=== PATIENT | male | born 1965 | race Caucasian/White ===

== ENCOUNTER 2019-11-22 20:21 | Emergency (ER) | payer BC ==
--- OUTSIDE RECORDS SUMMARY | 2019-11-22 20:30 | XMS REPORT | Continuity of Care Document ---
:1965 External Reference #:[id number] Author Name Citlalli Dowd DO Address [address] [place] [address] Care Team Providers Name Role Phone Ramos Ortega MD - Hematology & Care Team Information Qa Consultant Oncology Jack Yepez MD - Family Care Team Information Qa Consultant [phone] Medicine King Gonzalez MD [facility] - Care Team Information Qa Consultant [phone] Cardiovascular Disease Problems Active Problems Provider Date Lymphadenopathy Jack Snyder MD Onset: 11/17/2012 Malignant lymphoma of lymph nodes of Jack Snyder MD Onset: 12/17/2012 inguinal region AND/OR lower limb Malignant lymphoma of lymph nodes of Citlalli Dowd DO Onset: 03/27/2015 axilla AND/OR upper limb Localized, primary osteoarthritis Citlalli Dowd DO Onset: 03/27/2015 Arthralgia of the lower leg Citlalli Dowd DO Onset: 03/27/2015 Vitamin deficiency Citlalli Dowd DO Onset: 10/26/2019 Abnormal findings on diagnostic Rei Jonas M.D. Onset: 01/27/2019 imaging of urinary organs Benign prostatic hyperplasia Rei Jonas M.D. 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 Social History Type Date Description Comments Sex Unknown Tobacco Use Start: Unknown End: Former Cigarette Smoker Quit 2 yrs ago Unknown ETOH Use Currently consumes alcohol socially Tobacco Use Start: Unknown End: Patient is a former Unknown smoker Recreational Drug Use Denies Drug Use Tobacco Use Start: Unknown 08/09/18 says quit 8yrs ago Smoking Status Reviewed: 02/25/19 08/09/18 says quit 8yrs ago Allergies, Adverse Reactions, Alerts Active Allergies Reaction Severity Comments Date NKDA 11/17/2012 Cats 07/04/2013 Dust Mites 07/04/2013 Dust 07/04/2013 Medications Active Medications SIG Qnty Indications Ordering Provider Date Alfuzosin HCL ER 1 by mouth 30tabs Rei Jonas, 01/27/2019 10mg every day M.D. Tablets ER 24HR Omeprazole TK 1 C PO D B Unknown 40mg Capsules Meal Immunizations CPT Code Status Date Vaccine Lot # [id number] Given 11/10/2012 Tdap injection Vital Signs Date Vital Result Comment 10/26/2019 3:01pm BP Systolic 145 mmHg BP Diastolic 91 mmHg Body Temperature 98.6 F Heart Rate 72 /min Respiratory Rate 16 /min Weight 219.00 lb Pain Level 4 right side lower back wrappes around to abd. O2 % BldC Oximetry 98 % 03/08/2019 9:56am BP Systolic 137 mmHg BP Diastolic 87 mmHg Body Temperature 98.3 F Heart Rate 72 /min Respiratory Rate 18 /min Height 69 inches 5'9" Weight 218.00 lb Pain Level 2 pelvic and bladder pain BMI (Body Mass Index) 32.2 kg/m2 BSA (Body Surface Area) 2.14 m2 [place] body weight in kilograms 73 kg O2 % BldC Oximetry 98 % Results Test Acquired Date Facility Test Result H/L Range Note Urine Culture 10/26/2019 [facility] Urine NO GROWTH: 1, [address] Culture FINAL <[place] [address] NOTE> [phone] CBC 10/26/2019 [facility] White Blood 4.8 K/uL Normal 3.4-10.5 W/Automated [address] Count Diff [place] [id number] [phone] Red Blood Count 4.69 M/uL Normal 4.20-5.80 Hemoglobin 14.1 gm/dL Normal 12.8-17.0 Hematocrit 41.8 % Normal 38.0-48.0 Mean Cell Volume 89.1 fl Normal 80.0-96.0 Mean Corpuscular HGB 30.1 pg Normal 27.0-33.0 Mean Corpuscular HGB Conc 33.7 g/dL Normal 31.7-36.0 Platelet Count 165 K/uL Normal 155-360 Red Cell Distri Width SD 39.8 fl Normal 36-51 Red Cell Distri Width %CV 12.2 % Normal 11.6-15.8 Mean Platelet Volume 10.2 fl Normal 6.6-10.6 Neut% 71.3 % Normal 33.0-73.0 Lymph % 17.9 % Low 20.0-42.0 [place] % 6.7 % Normal 0.0-10.0 Eo% 3.1 % Normal 0.0-6.6 Bas% 0.6 % Normal 0.0-1.1 Immature Grans 0.4 % Normal 0.0-5.0 NRBC % 0.0 /100WBC < 10/ 100 WBC Neut# 3.43 K/uL Normal 1.8-7.0 Lymph # 0.86 K/uL Low 1.0-4.0 [place] # 0.32 K/uL Normal 0.0-0.8 Eos # 0.15 K/uL Normal 0.0-0.5 Baso # 0.03 K/uL Normal 0.0-0.1 Immature Grans Absolute 0.02 K/uL NRBC # 0.00 K/uL Laboratory test finding 10/26/2019 [facility] Ferritin <pending> [address] [place], [place] [id number] [phone] Laboratory test finding 10/26/2019 [facility] LDH <pending> [address] [place], [place] [id number] [phone] Sedimentation Rate 8 mm/hr Normal 2-45 3 Ua RFX Micro & Culture 10/26/2019 [facility] Urine Color YELLOW Yellow II [address] [place] [address] [phone] Urine Clarity CLEAR Clear Urine Glucose - Dipstick NEGATIVE mg/dL Negative Urine Bilirubin - Dipstick NEGATIVE Negative Urine Ketone NEGATIVE mg/dL Negative Urine Specific [place] 1.025 Normal 1.010-1.030 Urine Blood NEGATIVE Negative Urine PH 6.0 Low 6.5-7.5 Urine Protein - Dipstick NEGATIVE mg/dL Negative Urine Urobilinogen - Dipstick 0.2 E.U./dL Normal 0.2-1.0 Urine Nitrite - Dipstick NEGATIVE Negative Urine Leuk Esterase NEGATIVE Negative Source: URINE, CLEAN CAT <SEE NOTE> 4 Iron-Tibc-%Sat 10/26/2019 [facility] Serum Iron 61 g/dL Low 65-175 [address] [place] [address] [phone] Total Iron Binding Capacity 296 g/dL Normal 250-450 Transferrin %Saturation 21 % Normal 12-57 Vitamin B12 And 10/26/2019 [facility] Vitamin B12 491 pg/mL Normal 193-986 Folate [address] [place] [address] [phone] Folic Acid 11.6 ng/mL Normal 3.1-17.5 Laboratory test 10/26/2019 [facility] Ferritin 228 ng/mL Normal 26-388 finding [address] [place], [place] [id number] [phone] Comprehensive 10/26/2019 [facility] Glucose 88 mg/dL Normal 74-106 Metabolic Panel [address] [place] [address] [phone] BUN 15 mg/dL Normal 7-18 Creatinine 1.0 mg/dL Normal 0.6-1.3 Glom Filtration Rate, Estimate >60 mL/min >60 If >60 mL/min >60 5 BUN/Creat 15.0 ratio Sodium 138 mmol/L Normal 136-145 Potassium 3.6 mmol/L Normal 3.5-5.1 Chloride 106 mmol/L Normal 98-107 Carbon Dioxide 29 mmol/L Normal 21-32 Anion Gap 3 mEq/L Low 8-16 Calcium 8.8 mg/dL Normal 8.5-10.1 Total Protein 7.6 g/dL Normal 6.4-8.2 Albumin 4.2 g/dL Normal 3.4-5.0 Globulin 3.4 g/dL Normal 1.9-4.3 Alb/Glob 1.2 ratio Bilirubin,Total 1.0 mg/dL Normal 0.2-1.0 Sgot/Ast 22 U/L Normal 15-37 SGPT/Alt 36 U/L Normal 12-78 Alkaline Phosphatase 74 U/L Normal 45-117 Laboratory test finding 10/26/2019 [facility] LDH 179 U/L Normal 87-241 [address] [place] [address] [phone] 1 C83.30 E61.1 E53.9 2 NO GROWTH: FINAL REPORT 3 This result was obtained with an ESR method that is not based on the standard Westergren Method. When comparing results obtained from the traditional Westergren ESR and this method it is important to refer to the reference range for each method. Method: Capillary Photometry 4 URINE, CLEAN CATCH 5 Note: Persistent reduction for 3 months or more in an eGFR <60 mL/min/1.73 m2 defines CKD. Patients with eGFR values >/=60 mL/min/1.73 m2 may also have CKD if evidence of persistent proteinuria is present. The original MDRD equation for estimated GFR is not valid for patients less than 18 years of age. Additional information may be found at www.kdo[facility].org. Procedures Description No Information Available Medical Devices Description No Information Available Encounters Description No Information Available Assessments Date Code Description Provider 10/26/2019 C83.30 Diffuse large B-cell lymphoma, unspecified Citlalli Dowd DO site 10/26/2019 N40.1 Benign prostatic hyperplasia with lower Citlalli Dowd DO urinary tract sympto 10/26/2019 E56.9 Vitamin deficiency Citlalli Dowd DO Plan of Treatment Future Appointment(s):11/01/2019 4:30 pm - Oncology Nurse at Oncology [id number] 10:00 am - Rei Jonas M.D. at Urology Functional Status Functional Condition Comment Date Status Independent with all ADL's Active Mental Status Description No Information Available Referrals Description No Information Available
[2019-11-22 20:44] VITALS: BP 140/85
--- NOTE | 2019-11-22 21:13 | UC ---
Respiratory Complaint HPI - HPI Summary HPI Summary: 53 yo male with sensation of dyspnea this has been an issue for months he fells like he is not getting enough air in symptoms wax and wane were bad in October then improved feels phlegmy at times no fever some tightness sub sternally Hx non Hodgkin Lyphoma Had CT chest 01/21 has had recent blood work no abd pain saw oncologist in Oct - History of Current Complaint Chief Complaint: UCRespiratory Stated Complaint: DIFFICULTY BREATHING Time Seen by Provider: 11/22/19 20:36 Hx Obtained From: Patient Onset/Duration: Sudden Onset, Gradual Onset, Lasting Weeks Timing: Intermittent Episodes Severity Initially: Mild Severity Currently: Mild Pain Intensity: 0 Pain Scale Used: 0-10 Numeric Character: Cough: Nonproductive Aggravating Factors: Nothing Alleviating Factors: Nothing Associated Signs And Symptoms: Positive: Dyspnea. Negative: Fever, Chills, Pleuritic Chest Pain, Wheezing, Hemoptysis, Dizziness, Calf Pain, Calf Swelling , Edema, URI, Nasal Congestion, Hoarseness, Sinus Discomfort Related History: Seasonal Allergies - Allergies/Home Medications Allergies/Adverse Reactions: Allergies Allergy/AdvReac Type Severity Reaction Status Date / Time No Known Allergies Allergy Verified 11/22/19 20:41 Home Medications: Home Medications Alfuzosin HCl [Alfuzosin HCl ER] 10 mg PO DAILY 11/22/19 [History Confirmed ] LORazepam TAB(*) [Ativan 0.5 MG TAB (*)] 0.5 mg PO TID PRN 11/22/19 [History Confirmed 11/22/19] Omeprazole 40 mg PO DAILY 11/22/19 [History Confirmed 11/22/19] PMH/Surg Hx/FS Hx/Imm Hx Previously Healthy: Yes Respiratory History: Bronchitis GI/ History: Gastroesophageal Reflux - Surgical History Surgical History: Yes Surgery Procedure, Year, and Place: DEVIATED SEPTUM REPAIR. WRIST SX WITH HIP SITE GRAPH. LEFT ACL. RIGHT HIP BX. MASS REMOVED FROM BEHIND LEFT EAR. PORT PLACEMENT AND REMOVAL - Family History Known Family History: Positive: Hypertension, Other - CVA, lymphoma - Social History Alcohol Use: Occasionally Substance Use Type: None Smoking Status (MU): Former Smoker When Did the Patient Quit Smoking/Using Tobacco: 5 YRS AGO Review of Systems All Other Systems Reviewed And Are Negative: Yes Constitutional: Positive: Negative Skin: Positive: Negative Eyes: Positive: Negative ENT: Positive: Negative Respiratory: Positive: Shortness Of Breath Cardiovascular: Positive: Negative Gastrointestinal: Positive: Negative Genitourinary: Positive: Negative Motor: Positive: Negative Neurovascular: Positive: Negative Musculoskeletal: Positive: Negative Neurological/Mental Status: Positive: Negative Psychological: Positive: Negative Physical Exam Triage Information Reviewed: Yes Appearance: Well-Appearing, No Pain Distress, Well-Nourished Vital Signs: Initial Vital Signs Temp 98.6 F 11/22/19 20:36 Pulse 74 11/22/19 20:36 Resp 16 11/22/19 20:36 BP 140/85 11/22/19 20:36 Pulse Ox 100 11/22/19 20:36 Vital Signs Reviewed: Yes Eyes: Positive: Conjunctiva Clear ENT: Positive: Hearing grossly normal, TMs normal, Uvula midline. Negative: Pharyngeal erythema, Nasal congestion, Nasal drainage, Trismus, Muffled voice, Hoarse voice Dental Exam: Normal Neck: Positive: Supple, Nontender, No Lymphadenopathy Respiratory: Positive: Lungs clear, Normal breath sounds, No respiratory distress, No accessory muscle use Cardiovascular Exam: Normal Cardiovascular: Positive: RRR, No Murmur Abdomen Description: Positive: Nontender, No Organomegaly, Soft. Negative: CVA Tenderness (R), CVA Tenderness (L) Bowel Sounds: Positive: Present Musculoskeletal: Positive: ROM Intact, Other: - sl edema right LE- had inguinal node removed Neurological: Positive: Alert Psychological Exam: Normal Skin Exam: Normal Diagnostics - Laboratory Lab Results: PEAK FLOW 600 - Radiology No standard instances Radiology Interpretation Completed By: ED Physician Summary of Radiographic Findings: NAD - EKG Cardiac Rate: NL Cardiac Rhythm: Sinus: Normal Ectopy: None ST Segment: Non-Specific Respiratory Course/Dx - Differential Dx/Diagnosis Provider Diagnosis: Dyspnea, unspecified Discharge ED - Sign-Out/Discharge Documenting (check all that apply): Patient Departure All imaging exams completed and their final reports reviewed: No - Discharge Plan Condition: Stable Disposition: HOME Patient Education Materials: Dyspnea (ED) Additional Instructions: As discussed I am not sure of the cause of your symptoms This type of problem is best evaluated in the ER where blood work and other testing is available Your exam is unremarkable You EKG and Chest XR look fine Your pulse ox is 100% If you change your mind go to the ER Contact your doctor in AM to discuss follow up and further testing I suggest you try 30 ml of mylanta every 2 hours while awake for 2-3 days in cause your symptom are due to esophageal spasm TO ER FOR NEW OR WORSENING SYMPTOMS - Billing Disposition and Condition Condition: STABLE Disposition: Home
--- NOTE | 2019-11-23 08:48 | UC ---
- Progress Note Progress Note: chest xray report: IMPRESSION: FINDINGS CONSISTENT WITH COPD, NO EVIDENCE FOR ACUTE DISEASE. Course/Dx - Diagnoses Provider Diagnoses: Dyspnea, unspecified Discharge ED - Sign-Out/Discharge Documenting (check all that apply): Patient Departure All imaging exams completed and their final reports reviewed: Yes - Discharge Plan Condition: Stable Disposition: HOME Patient Education Materials: Dyspnea (ED) Referrals: Jack Yepez MD [Primary Care Provider] - Additional Instructions: As discussed I am not sure of the cause of your symptoms This type of problem is best evaluated in the ER where blood work and other testing is available Your exam is unremarkable You EKG and Chest XR look fine Your pulse ox is 100% If you change your mind go to the ER Contact your doctor in AM to discuss follow up and further testing I suggest you try 30 ml of mylanta every 2 hours while awake for 2-3 days in cause your symptom are due to esophageal spasm TO ER FOR NEW OR WORSENING SYMPTOMS - Billing Disposition and Condition Condition: STABLE Disposition: Home
== END 2019-11-22 21:52 | disposition home or self-care (01) ==
LOC: UCCORT 20:21
DX: R06.00 Dyspnea, unspecified (principal); K21.9 Gastro-esophageal reflux disease without esophagitis; Z79.899 Other long term (current) drug therapy; Z87.891 Personal history of nicotine dependence
CPT/HCPCS: 71046; 93005; 99212; G0463